=== PATIENT | female | born 1955 ===

== ENCOUNTER 2022-07-15 13:46 | Emergency (ER) | payer MEDICARE ==
[2022-07-15 14:09] VITALS: BP 114/68; PULSE 76
[2022-07-15 14:50] LABS: BASOPHILS ABSOLUTE AUTO 0.03 K/uL (0.02-0.10); BASOPHILS PERCENT AUTO 0.4 % (0.0-0.5); EOSINOPHILS ABSOLUTE AUTO 0.05 K/uL (0.04-0.40); EOSINOPHILS PERCENT AUTO 0.6 % (1.0-5.0); HEMATOCRIT 47.7 % (37.0-47.0); HEMOGLOBIN 16.5 g/dL (11.5-16.5); LYMPHOCYTES ABSOLUTE AUTO 2.03 K/uL (1.50-4.00); LYMPHOCYTES PERCENT AUTO 24.9 % (20.0-40.0); MEAN CORPUSCULAR HEMOGLOBIN 30.4 pg (27.0-32.0); MEAN CORPUSCULAR HGB CONC 34.6 g/dL (31.0-35.0); MEAN CORPUSCULAR VOLUME 88 fL (76-96); MEAN PLATELET VOLUME 10.5 fL (6.0-10.0); MONOCYTES ABSOLUTE AUTO 0.72 K/uL (0.20-0.80); MONOCYTES PERCENT AUTO 8.8 % (3.0-10.0); NEUTROPHILS ABSOLUTE AUTO 5.31 K/uL (2.00-7.50); NEUTROPHILS PERCENT AUTO 65.3 % (45.0-70.0); PLATELET COUNT,PLT 206 K/uL (150-500); RED BLOOD CELL COUNT 5.43 M/uL (3.80-5.80); RED CELL DISTRIBUTION WIDTH 14.8 % (11.0-16.0); WHITE BLOOD CELL COUNT,WBC 8.1 K/uL (4.0-11.0)
[2022-07-15] MEDS ORDERED: Sodium Chloride 0.9% 1,000 ML IV ONE (14:52)
== END 2022-07-15 15:50 | disposition home or self-care (01) ==
LOC: LB.ED 13:46
DX: J10.1 Influenza due to other identified influenza virus with other respiratory manifestations (principal); J44.9 Chronic obstructive pulmonary disease, unspecified; Z79.82 Long term (current) use of aspirin; Z88.5 Allergy status to narcotic agent; Z88.8 Allergy status to other drugs, medicaments and biological substances
CPT/HCPCS: 36415; 71046; 85025; 87804; 99284; J7030; 99283